=== PATIENT | female | born 1960 | race Two or more races ===

== ENCOUNTER 2017-01-11 09:57 | Emergency (ER) | payer SELFPAY ==
[~2017-01-11] VITALS: Ht 162.6 cm; Wt 72.6 kg
[~2017-01-11 09:57] MED LIST: BENADRYL25 MG ORAL; IBUPROFEN600 MG ORAL; REGLAN10 MG ORAL
[2017-01-11 10:08] VITALS: BP 166/84
[2017-01-11] MEDS ORDERED: DiphenhydrAMINE 50mg/ml Inj IVP ONE (10:45)
[2017-01-11 11:08] LABS: EOSINOPHILS % (AUTO) 19.7 % (0.0-3.0); LYMPHOCYTES % (AUTO) 33.3 % (20.0-45.0); MEAN CORPUSCULAR HEMOGLOBIN 29.8 PG (27.0-31.0); MEAN CORPUSCULAR HGB CONC 32.3 G/DL (32.0-36.0); MEAN CORPUSCULAR VOLUME 92 FL (80-99); MONOCYTES % (AUTO) 7.7 % (1.0-10.0); NEUTROPHILS % (AUTO) 37.2 % (45.0-75.0); PLATELET COUNT 205 K/UL (150-450); RED BLOOD COUNT 4.58 M/UL (4.20-5.40); RED CELL DISTRIBUTION WIDTH 12.9 % (11.6-14.8); WHITE BLOOD COUNT 7.3 K/UL (4.8-10.8)
[2017-01-11 11:18] LABS: INR 0.9 (0.9-1.1); PROTHROMBIN TIME 9.5 SEC (9.30-11.50)
[2017-01-11 11:20] LABS: TROPONIN I < 0.30 ng/mL (<=0.30)
[2017-01-11 11:23] LABS: ALANINE AMINOTRANSFERASE 21 U/L (3-33); ALBUMIN/GLOBULIN RATIO 1.5 (1.0-2.7); ANION GAP 12 (5-15); ASPARTATE AMINO TRANSFERASE 22 U/L (5-40); CALCIUM 9.6 mg/dL (8.6-10.2); CARBON DIOXIDE 29 mEQ/L (20-30); CHLORIDE 100 mEQ/L (98-107); CREATININE 0.8 mg/dL (0.5-0.9); GLOMERULAR FILTRATION RATE > 60 mL/min (>60); HEMOLYSIS 6; POTASSIUM 3.1 mEQ/L (3.4-4.9); SODIUM 141 mEQ/L (135-145); TOTAL PROTEIN 7.5 g/dL (6.6-8.7)
--- NOTE | 2017-01-11 11:26 | Diagnostic Imaging Report ---
Indication: Dizziness. Headache Technique: Contiguous 5 mm thick transaxial imaging of the head obtained in a Siemens Sensation [address] scanner. Soft tissue and bone windows generated. Total Dose length Product (DLP): [address] Dose Index Volume (CTDIvol): 70.38, 0.15 mGy Comparison: none Findings: Minimal, patchy, nonspecific, white matter hypoattenuation is noted throughout the brain which may be due to chronic small vessel disease. There is no midline shift, edema, acute hemorrhage, mass effect, or abnormal extra-axial fluid collections. Bones and extra osseous soft tissues are unremarkable. Impression: No acute intracranial bleed, mass effect or edema. Nonspecific white matter hypoattenuation most likely due to chronic small vessel disease. The CT scanner at [facility] is accredited by the [employer] and the scans are performed using dose optimization techniques as appropriate to a performed exam including Automatic Exposure control.
--- NOTE | 2017-01-11 11:42 | Diagnostic Imaging Report ---
Indication: Dyspnea Comparison: None A single view chest radiograph was obtained. Findings: No definite infiltrate or pulmonary vascular congestion identified. The heart is enlarged. The aorta is mildly enlarged consistent with atherosclerotic vascular disease. The bones are osteopenic. Impression: No acute disease
[2017-01-11 12:10] VITALS: BP 143/89
[2017-01-11 12:17] LABS: ERYTHROCYTE SEDIMENTATION RATE 15 MM/HR (0-30)
--- NOTE | 2017-01-11 12:34 | Emergency Room Report ---
History of Present Illness General Chief Complaint: Dizziness Source: Patient Present Illness HPI Patient presents with dizziness and tingling of both hands and feet. This began 15 minutes prior to coming to ED while at work. She's had some nasal congestion and R ear fullness for 2-3 days. She also complains of mild headache which is generalized with some more on R without radiation. No nausea or vomiting. No tinnitus. The dizziness was associated with anxiety. Not felt like about to pass out. She is concerned about her blood pressure and whether she is having a stroke (her brother had a stroke fairly recently). No fever, chest pain, productive cough. When she did cough, the LAN was slightly worse. (She had denied LAN to RN.) She does not take medicines for HTN. No meds taken. Never with this feeling before. No palpitations, change in bowels, dysuria. No joint pain. Denies DM or sy of elevated glucose. She does report stress. Allergies: Coded Allergies: No Known Allergies (Unverified , 02/27/15) Patient History Past Medical History: see triage record Social History: Denies: smoking Social History Narrative works Last Menstrual Period: 4 years ago Reviewed Nursing Documentation: PMH: Agreed, PSxH: Agreed Nursing Documentation-PMH Past Medical History: No Stated History Review of Systems All Other Systems: negative except mentioned in HPI Physical Exam Vital Signs Date Time Temp Pulse Resp B/P (MAP) Pulse Ox O2 Delivery O2 Flow Rate FiO2 01/11/17 09:58 98.1 93 16 155/105 99 Room Air Sp02 EP Interpretation: reviewed, normal General Appearance: well appearing, no apparent distress, GCS 15 Head: normocephalic Eyes: bilateral eye normal inspection, bilateral eye PERRL, bilateral eye EOMI - no nystagmus ENT: hearing grossly normal, normal pharynx, TMs + canals normal, moist mucus membranes Neck: supple Respiratory: chest non-tender, lungs clear, normal breath sounds Cardiovascular #1: regular rate, rhythm Cardiovascular #2: 2+ radial (R) Gastrointestinal: normal inspection, normal bowel sounds, non tender, no mass, non-distended Musculoskeletal: back normal, gait/station normal, normal range of motion Neurologic: alert, oriented x3, cardiac/vascular sonographer III-XII nml as tested, motor strength/tone normal, DTRs symmetric, sensory intact, cerebellar normal, speech normal Psychiatric: anxious Skin: normal inspection, warm/dry Medical Decision Making Diagnostic Impression: Primary Impression: Paresthesia Additional Impressions: Vertigo Headache Qualified Codes: R51 - Headache Hypertension Qualified Codes: I10 - Essential (primary) hypertension ER Course Patient with dizziness, HTN and tingling. Ddx: hyperventilation, anxiety, [employer] HAND event, vertigo, cardiac event, sinusitis, viral syndrome amongst others. Urgent evaluation with CT, labs, EKG and CXR. Treatment with benadryl ( consider zofran and ativan or antivert). EKG, CXR, CT and labs unremarkable. Patient improved and tingling stopped. Still non-focal neuro. Discussed treatment for HTN. She states she wants to hold off on tx. BP is better. Patient stable for outpatient observation and treatment. Laboratory Tests Test 01/11/17 10:45 White Blood Count 7.3 K/UL (4.8-10.8) Red Blood Count 4.58 M/UL (4.20-5.40) Hemoglobin 13.6 G/DL (12.0-16.0) Hematocrit 42.2 % (37.0-47.0) Mean Corpuscular Volume 92 FL (80-99) Mean Corpuscular Hemoglobin 29.8 PG (27.0-31.0) Mean Corpuscular Hemoglobin Concent 32.3 G/DL (32.0-36.0) Red Cell Distribution Width 12.9 % (11.6-14.8) Platelet Count 205 K/UL (150-450) Mean Platelet Volume 7.0 FL (6.5-10.1) Neutrophils (%) (Auto) 37.2 % (45.0-75.0) L Lymphocytes (%) (Auto) 33.3 % (20.0-45.0) Monocytes (%) (Auto) 7.7 % (1.0-10.0) Eosinophils (%) (Auto) 19.7 % (0.0-3.0) H Basophils (%) (Auto) 2.0 % (0.0-2.0) Erythrocyte Sedimentation Rate 15 MM/HR (0-30) Prothrombin Time 9.5 SEC (9.30-11.50) Prothrombin Time INR 0.9 (0.9-1.1) PTT 23 SEC (23-33) Sodium Level 141 mEQ/L (135-145) Potassium Level 3.1 mEQ/L (3.4-4.9) L Chloride Level 100 mEQ/L (98-107) Carbon Dioxide Level 29 mEQ/L (20-30) Anion Gap 12 (5-15) Blood Urea Nitrogen 16 mg/dL (7-23) Creatinine 0.8 mg/dL (0.5-0.9) Estimate Glomerular Filtration Rate > 60 mL/min (>60) Glucose Level 152 mg/dL (74-106) H Calcium Level 9.6 mg/dL (8.6-10.2) Total Bilirubin 0.3 mg/dL (0.0-1.2) Aspartate Amino Transferase (AST) 22 U/L (5-40) Alanine Aminotransferase (ALT) 21 U/L (3-33) Alkaline Phosphatase 61 U/L (35-104) Total Creatine Kinase 101 U/L (26-140) Troponin I < 0.30 ng/mL (<=0.30) Pro-B-Type Natriuretic Peptide 38 pg/mL (0-125) Total Protein 7.5 g/dL (6.6-8.7) Albumin 4.5 g/dL (3.5-5.2) Globulin 3.0 g/dL Albumin/Globulin Ratio 1.5 (1.0-2.7) Thyroid Stimulating Hormone (TSH) 2.200 uIU/mL (0.300-4.500) EKG Diagnostic Results Rate: normal Rhythm: NSR ST Segments: no acute changes Rhythm Strip Diag. Results EP Interpretation: yes Rhythm: NSR, no PVC's, no ectopy Chest X-Ray Diagnostic Results Chest X-Ray Diagnostic Results : Chest X-Ray Ordered: Yes # of Views/Limited/Complete: 1 View Indication: Other EP Interpretation: Yes Interpretation: no consolidation, no effusion, no pneumothorax, no acute cardiopulmonary disease Impression: No acute disease - poor inspiration Electronically Signed by: Electronically signed by Wes Sequeira MD CT/MRI/US Diagnostic Results CT/MRI/US Diagnostic Results : Imaging Test Ordered: head Impression no mass or bleed. Possible small vessel disease. Last Vital Signs Date Time Temp Pulse Resp B/P (MAP) Pulse Ox O2 Delivery O2 Flow Rate FiO2 01/11/17 13:15 98.2 75 17 140/85 98 Room Air Status: improved Disposition: HOME, SELF-CARE Condition: Improved Scripts Meclizine Hcl* (MECLIZINE*) 25 Mg Tablet 25 MG ORAL THREE TIMES A DAY Y for vertigo/dizziness, #10 TAB Prov: Wes Sequeira M.D. 01/11/17 Referrals: NOT CHOSEN [facility]/,REFERRING (PCP) Wes Sequeira M.D. Jan 11, 2017 12:34
[2017-01-11] MEDS ORDERED: MECLIZINE HCL25 MG ORAL (12:44)
[2017-01-11 13:15] VITALS: BP 140/85
--- NOTE | 2017-01-12 18:03 | Cardiology Report ---
APPROVED REPORT EKG Measurement Heart [id number] Normal sinus rhythm Possible Inferior infarct, age undetermined Abnormal ECG
== END 2017-01-11 13:15 | disposition home or self-care (01) ==
LOC: EMR 10:42
DX: R20.2 Paresthesia of skin (principal); R42 Dizziness and giddiness; R51 Headache; I10 Essential (primary) hypertension
CPT/HCPCS: 36415; 70450; 71010; 80053; 82550; 83880; 84443; 84484; 85025; 85610; 85651; 85730; 93005; 96361; 96374; 99284; J1200